=== PATIENT | male | born 1945 | race Caucasian/White ===

== ENCOUNTER 2022-07-08 09:28 | Day surgery (SDC) | payer BC, MEDICAID ==
[2022-06-30 15:59] LABS: ALBUMIN 4.2 G/DL (3.4-5.0); ALBUMIN/GLOBULIN RATIO 1.3 (1.1-1.5); ALKALINE PHOSPHATASE 57 IU/L (46-116); BLOOD UREA NITROGEN 15 MG/DL (7-18); BUN/CREATININE RATIO 14.3 (5.4-32.0); CALCIUM 9.1 MG/DL (8.5-10.1); CHLORIDE 106 MMOL/L (99-107); CREATININE 1.05 MG/DL (0.60-1.10); PRE OP ALT 33 U/L (30-65); PRE OP ANION GAP 6 (8-16); PRE OP AST 19 U/L (10-37); PRE OP BILIRUB, TOTAL 0.4 MG/DL (0.0-1.0); PRE OP GLUCOSE 90 MG/DL (70-104); PRE OP POTASSIUM 4.3 MMOL/L (3.4-5.1); PRE OP SODIUM 142 MMOL/L (135-145); TOTAL CARBON DIOXIDE 30.4 MMOL/L (24-32); TOTAL PROTEIN 7.4 G/DL (6.4-8.2); eGFR 68 ML/MIN
[2022-06-30 16:18] LABS: BASOPHILS % (AUTO) 0.7 % (0-1); EOSINOPHILS # (AUTO) 0.1 X10'3 (0-0.9); EOSINOPHILS % (AUTO) 2.1 % (0-6); LYMPHOCYTES # (AUTO) 1.4 X10'3 (1.1-4.8); LYMPHOCYTES % (AUTO) 29.8 % (21-51); MEAN CORPUSCULAR HEMOGLOBIN 29.8 PG (27.0-31.0); MEAN CORPUSCULAR HGB CONC 33.5 g/dL (33.0-36.5); MEAN CORPUSCULAR VOLUME 88.7 FL (78-98); MEAN PLATELET VOLUME 7.5 FL (7.4-10.4); MONOCYTES # (AUTO) 0.5 X10'3 (0-0.9); MONOCYTES % (AUTO) 9.6 % (2-12); NEUTROPHILS # (AUTO) 2.8 X10'3 (1.8-7.7); NEUTROPHILS % (AUTO) 57.8 % (42-75); PRE OP HEMATOCRIT 48.7 % (42.0-52.0); PRE OP HEMOGLOBIN 16.3 g/dL (14.0-17.9); PRE OP PLATELET COUNT 198 X10'3 (140-440); RED BLOOD COUNT 5.49 X10'6 (4.70-6.10); RED CELL DISTRIBUTION WIDTH 13.8 % (11.5-14.5)
[~2022-07-08] VITALS: Ht 172.7 cm; Wt 81.7 kg
[2022-07-08] VITALS (8 sets, daily range): BP systolic 120–150; BP diastolic 81–100
[~2022-07-08 09:28] MED LIST: BACL20TA PO; DEXL60CA6 PO; FENO145T25 PO; HYDR-3972 PO; TADA5TAB2 PO; TERA1CAP4 PO; [UNRECOGNIZED DRUG - CODE] SQ; cefazolin/dext.iso 2gm/100ml 100 ML IV ONE; famotidine 20mg tablet PO ONE; ringers solution, lacted 1,000 ML IV SCH
[2022-07-08] MEDS ORDERED: BUPIVAcaine/PF 2.5mg/ml (0.25%) 10ml vial ONE (10:21)
[2022-07-08] MEDS ORDERED: fentaNYL/PF 50MCG/1 ML 2ML syringe IV PRN ×2 (11:15)
[2022-07-08] MEDS ORDERED: proCHLORperazine 10 MG/2 ml inj IV PRN (11:15)
[2022-07-08] MEDS ORDERED: meperidine/PF 25mg/ml syringe IV PRN (11:15)
[2022-07-08] MEDS ORDERED: morphine 4 MG/ML inj SYRINge IV PRN (11:15)
[2022-07-08] MEDS ORDERED: ondansetron/PF 4mg/2ml inj IV PRN (11:15)
[2022-07-08] MEDS ORDERED: acetaminophen 1,000mg/100ml IV 100 ML IV PRN (11:15)
[2022-07-08] MEDS ORDERED: ringers solution, lacted 1,000 ML IV SCH (11:15)
[2022-07-08] MEDS ORDERED: morphine 2 MG/ML inj. syringe IV PRN (11:15)
[2022-07-08] MEDS ORDERED: LIDOcaine 0.5% (5mg/ml) 50ml vial ONE ×2 (12:14→12:36)
[2022-07-08] MEDS ORDERED: fentaNYL/PF 50MCG/1 ML 2ML syringe ONE (12:17)
[2022-07-08] MEDS ORDERED: midazolam 1 mg/ML 2ml injection ONE (12:17)
[2022-07-08] MEDS ORDERED: propofol inj 20 ML IV ONE (12:36)
--- NOTE | 2022-07-08 12:46 | NUR ---
PT ARRIVED VIA GURNEY ACCOMPANIED BY DR GAVIRIA-ANESTHESIA REPORT GIVEN, VSS, DENIES PAIN, CSM INTACT, FINGERS PINK AND WARM, PT WAKING UP
--- NOTE | 2022-07-08 14:06 | NUR ---
PT UP AND GETTING DRESSED, DENIES PAIN, VSS, NO CHANGES IN DRSG, CSM INTACT, ABLE TO AMBULATE TO BATHROOM, D/C INSTRUCTIONS GIVEN TO PT-ALL QUESTIONS ANSWERED, PT TAKEN WITH ALL BELONGINGS TO VEHICLE FOR TRANSPORT HOME.
[2022-07-11] MEDS ORDERED: ringers solution, lacted 1,000 ML IV SCH (05:00)
[2022-07-11] MEDS ORDERED: ceFAZolin inj. 2,000 MG in dextrose 5%-water 100 ML IV ONE (05:30)
[2022-07-11] MEDS ORDERED: famotidine 20mg tablet PO ONE (05:30)
== END 2022-07-08 14:06 | disposition home or self-care (01) ==
LOC: PAS 09:28
PROVIDERS: ATTEND Orthopaedic Surgery Hand Surgery
DX: G56.01 Carpal tunnel syndrome, right upper limb (principal); Z79.899 Other long term (current) drug therapy; Z98.890 Other specified postprocedural states; Z87.891 Personal history of nicotine dependence; K21.9 Gastro-esophageal reflux disease without esophagitis; M19.90 Unspecified osteoarthritis, unspecified site; G89.29 Other chronic pain; Z91.013 Allergy to seafood
CPT/HCPCS: 36415; 64721; 80053; 82948; 85025; 87811; 93005; J0690; J2250; J2704; J3010; J3490; J7030; J7120; Z7506; Z7512; A4215

== ENCOUNTER 2022-08-05 06:23 | Day surgery (SDC) | payer BC, MEDICAID ==
[2022-08-01 15:27] LABS: BASOPHILS # (AUTO) 0.1 X10'3 (0-0.2); BASOPHILS % (AUTO) 0.9 % (0-1); EOSINOPHILS # (AUTO) 0.1 X10'3 (0-0.9); LYMPHOCYTES # (AUTO) 1.6 X10'3 (1.1-4.8); LYMPHOCYTES % (AUTO) 21.7 % (21-51); MEAN CORPUSCULAR HEMOGLOBIN 29.7 PG (27.0-31.0); MEAN CORPUSCULAR HGB CONC 33.6 g/dL (33.0-36.5); MEAN CORPUSCULAR VOLUME 88.5 FL (78-98); MEAN PLATELET VOLUME 6.6 FL (7.4-10.4); MONOCYTES # (AUTO) 0.6 X10'3 (0-0.9); MONOCYTES % (AUTO) 7.9 % (2-12); NEUTROPHILS % (AUTO) 68.5 % (42-75); PRE OP HEMATOCRIT 49.5 % (42.0-52.0); PRE OP HEMOGLOBIN 16.6 g/dL (14.0-17.9); PRE OP PLATELET COUNT 213 X10'3 (140-440); RED BLOOD COUNT 5.59 X10'6 (4.70-6.10); RED CELL DISTRIBUTION WIDTH 13.6 % (11.5-14.5)
[2022-08-01 15:40] LABS: ALBUMIN/GLOBULIN RATIO 1.2 (1.1-1.5); ALKALINE PHOSPHATASE 57 IU/L (46-116); BLOOD UREA NITROGEN 13 MG/DL (7-18); BUN/CREATININE RATIO 12.6 (5.4-32.0); CALCIUM 9.5 MG/DL (8.5-10.1); CHLORIDE 105 MMOL/L (99-107); CREATININE 1.03 MG/DL (0.60-1.10); PRE OP ALT 31 U/L (30-65); PRE OP ANION GAP 5 (8-16); PRE OP AST 24 U/L (10-37); PRE OP BILIRUB, TOTAL 0.5 MG/DL (0.0-1.0); PRE OP GLUCOSE 87 MG/DL (70-104); PRE OP POTASSIUM 3.8 MMOL/L (3.4-5.1); PRE OP SODIUM 141 MMOL/L (135-145); TOTAL CARBON DIOXIDE 30.8 MMOL/L (24-32); TOTAL PROTEIN 7.3 G/DL (6.4-8.2); eGFR 70 ML/MIN
[~2022-08-05] VITALS: Ht 172.7 cm; Wt 82.6 kg
[2022-08-05] VITALS (7 sets, daily range): BP systolic 114–156; BP diastolic 54–77
[~2022-08-05 06:23] MED LIST changes: +ASCO100T12 PO; +MAGN400C PO; +ZINC30CA PO; -[UNRECOGNIZED DRUG - CODE] SQ; +ceFAZolin inj. 2,000 MG in dextrose 5%-water 100 ML IV ONE; -cefazolin/dext.iso 2gm/100ml 100 ML IV ONE
[2022-08-05] MEDS ORDERED: BUPIVAcaine/PF 2.5mg/ml (0.25%) 10ml vial ONE (06:45)
[2022-08-05] MEDS ORDERED: LIDOcaine 1% 30ml preserv. free vial ONE (07:38)
[2022-08-05] MEDS ORDERED: fentaNYL/PF 50MCG/1 ML 2ML syringe ONE (08:11)
[2022-08-05] MEDS ORDERED: midazolam 1 mg/ML 2ml injection ONE (08:11)
[2022-08-05] MEDS ORDERED: ketorolac trometh. 30mg/ml inj. ONE (08:48)
--- NOTE | 2022-08-05 08:56 | NUR ---
Received from OR via , accompanied by AnesthesiologistDR MEDEL and report given by Anesthesiolgist. PATIENT IS DES MANDEL. DRESSING ON LEFT WRIST WITH BABAK BANDAGE COVERING. IV IN RIGHT WRIST 20G NO ISSUES. Addendum: 08/05/22 at 0916 by Jacey Peace RN Amended: Links added.
--- NOTE | 2022-08-05 09:46 | NUR ---
PATIENT MEETS DISCHARGE CRITERIA. VSS. CT'ED OV NO ISSUES. PATIENT STATES NO PAIN. EDUCATED PATIENT ON DISCHARGE INSTRUCTIONS AND WHEELED PATIENT TO HIS 'S CAR. Addendum: 08/05/22 at 1115 by Jacey Peace RN Amended: Links added.
== END 2022-08-05 09:46 | disposition home or self-care (01) ==
LOC: PAS 06:23 → EDUNIT# 09:00 → PAS 09:46
PROVIDERS: ATTEND Orthopaedic Surgery Hand Surgery
DX: G56.02 Carpal tunnel syndrome, left upper limb (principal); K21.9 Gastro-esophageal reflux disease without esophagitis; G62.9 Polyneuropathy, unspecified; G43.909 Migraine, unspecified, not intractable, without status migrainosus; Z91.013 Allergy to seafood; F17.210 Nicotine dependence, cigarettes, uncomplicated; Z79.899 Other long term (current) drug therapy; Z98.890 Other specified postprocedural states; Z91.041 Radiographic dye allergy status; Z85.828 Personal history of other malignant neoplasm of skin
CPT/HCPCS: 36415; 64721; 80053; 82948; 85025; 93005; J0690; J1885; J2250; J3010; J3490; J7030; J7060; J7120; Z7506; Z7512; A4215; A6449